=== PATIENT | male | born 1935 | race Caucasian/White ===

== ENCOUNTER → 2017-03-24 | Day surgery (SDC) | payer MEDICARE, BC ==
[2017-03-20 14:24] VITALS: BMI 27.9
[~2017-03-24] MED LIST: IODIXANOL 320 MG/ML 100 ML IV ONE; SODIUM CHLORIDE 0.9% 250 ML IV ONE
[2017-03-24 12:02] VITALS: BP 134/74; PULSE 70; RESP 18; TEMP 98
--- NOTE | 2017-03-24 12:42 | P.PCN ---
Preoperative Diagnosis: Left upper extremity venogram and cine fluoroscopy of the leads Patient is a dual-chamber ICD which is approaching ADÁN. 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 50 mL of dye injected in the left upper extremity vein. Cephalic axillary subclavian and innominate veins were patent Plan Proceed with upgrade to a biventricular ICD at the time of ICD generator change since patient's RV pacing percentage is now greater than 70% and he is underlying cardiac myopathy and class II CHF Postoperative Diagnosis: Procedure(s) Performed: Implants: Anesthesia: none Disposition: same day Indications for Procedure: Operative Findings: Description of Procedure:
== END ==
LOC: CATHEP 11:34
PROVIDERS: ATTEND Internal Medicine Clinical Cardiac Electrophysiology
DX: I47.2 Ventricular tachycardia (principal); Z45.02 Encounter for adjustment and management of automatic implantable cardiac defibrillator; I45.10 Unspecified right bundle-branch block; I42.9 Cardiomyopathy, unspecified; I50.9 Heart failure, unspecified
CPT/HCPCS: 36005; 75820; Q9967

== ENCOUNTER → 2017-04-16 | Day surgery (SDC) | payer MEDICARE, BC ==
[2017-04-15 08:44] VITALS: BMI 33.9
[~2017-04-16] MED LIST changes: -IODIXANOL 320 MG/ML 100 ML IV ONE; +SODIUM CHLORIDE 0.9% 1,000 ML IV SCH; -SODIUM CHLORIDE 0.9% 250 ML IV ONE; +ceFAZolin 1,000 MG in SODIUM CHLORIDE 0.9% IRRIGATIO 250 ML IRRIGATION ONE; +ceFAZolin 2 GM in SODIUM CHLORIDE 0.9% 100 ML IVPB ONE
--- NOTE | 2017-04-16 11:46 | P.PCN ---
Preoperative Diagnosis: Patient has a history of exercise-induced ventricular fibrillation and is status post dual-chamber ICD. Device is at ADÁN Today he was brought in for upgrade to a biventricular ICD with implantation of a new LV lead and generator change. Indication cardiomyopathy Sustained VT/VF with exercise Wide QRS right bundle branch block pattern AV node disease with high percentage of RV pacing of with DDD pacing Patient programmed AAI - DDD, but once again high percentage of RV pacing of 70 % High percentage RV pacing could not be avoided with any pacing mode programming Known cardiac myopathy ejection fraction 40% in the past Based upon appropriate use criteria for ICD/biventricular device since, ACC/HRS guidelines, anticipated RV pacing greater than 40% qualifies for upgrade to a biventricular device. Appropriate use criteria 2013, ACC/HRS document, table 6.4, indication 227, M5 Today procedure was canceled because he had a skin reaction to Hibiclens soap with a rash all over his anterior chest wall including over the generator Plan Avoid Hibiclens soap Reschedule after confirming that his skin has healed He was seen in the office in about a week's time in the device clinic Postoperative Diagnosis: Procedure(s) Performed: Implants: Indications for Procedure: Operative Findings: Description of Procedure:
== END ==
LOC: CATHEP 10:52
PROVIDERS: ATTEND Internal Medicine Clinical Cardiac Electrophysiology
DX: I49.01 Ventricular fibrillation (principal); Z45.010 Encounter for checking and testing of cardiac pacemaker pulse generator [battery]; Z53.9 Procedure and treatment not carried out, unspecified reason; R21 Rash and other nonspecific skin eruption

== ENCOUNTER 2017-05-10 16:20 | Emergency (ER) | payer MEDICARE, BC ==
[2017-05-10 17:06] VITALS: BP 167/88; PULSE 65; RESP 18; TEMP 97.9
[2017-05-10] MEDS ORDERED: DIPH,PERTUS(ACELL)TETVAC-LF 0.5 ML VIAL IM ONE (17:18)
--- NOTE | 2017-05-10 17:25 | ED ---
General Adult HPI - General Chief complaint: Wound/Laceration Stated complaint: Chest Pressure-Fall Time Seen by Provider: 05/10/17 17:13 Source: patient, RN notes reviewed Mode of arrival: ambulatory Limitations: no limitations - History of Present Illness Initial comments: 81-year-old male presents to the emergency department with chief complaint of fall. Patient states he was trying to get down a palate and he lost his balance. Patient states that he fell backwards. Patient states he did cut his left arm he does not recall his last tetanus he has no pain to the arm. Patient states that he also was having some tenderness to the left breast. Patient states the palate came down and it hit his left breast and now some bruising to that area so he was concerned. Patient states is no shortness of breath there is no bleeding from the area. Patient states if you touch that specific areas pain. No pain throughout the rest the chest. He has a pacemaker at this time but it is much higher than that. Family was concerned due to the bruising to the chest so they thought that they should be seen as well as due to the left arm abrasion.Patient denies any recent fever, chills, shortness of breath, back pain, abdominal pain, nausea vomiting, numbness or tingling, dysuria or hematuria, constipation or diarrhea, headaches or visual changes, or any other current symptoms. - Related Data Home Medications Medication Instructions Recorded Confirmed Advil Arthritis 400 mg PO BID 07/09/16 04/15/17 Aspirin [Adult Low Dose Aspirin EC] 81 mg PO DAILY 07/09/16 04/16/17 Losartan [Cozaar] 50 mg PO DAILY 07/09/16 04/16/17 Rosuvastatin [Crestor] 10 mg PO HS 07/09/16 04/16/17 Sotalol [Betapace] 120 mg PO BID 07/09/16 04/16/17 amLODIPine [Norvasc] 2.5 mg PO HS 07/09/16 04/16/17 Cholecalciferol [Vitamin D3] 400 unit PO HS 04/15/17 04/16/17 Calcium 1000mg 1 tab PO HS 05/10/17 05/10/17 Allergies Allergy/AdvReac Type Severity Reaction Status Date / Time chlorhexidine Allergy Itching Verified 05/10/17 17:26 [From Hibiclens] iodine Allergy red face Verified 05/10/17 17:26 morphine Allergy Itching/fev Verified 05/10/17 17:26 er Review of Systems ROS Statement: Those systems with pertinent positive or pertinent negative responses have been documented in the HPI. ROS Other: All systems not noted in ROS Statement are negative. Past Medical History Past Medical History: Cancer, Osteoarthritis (OA), Prostate Disorder Additional Past Medical History / Comment(s): SEE DR SOLIS'S H&P, HX PROSTATE CA, hx fx back, some loss of short term memory, passed out 03/21/17 History of Any Multi-Drug Resistant Organisms: None Reported Past Surgical History: AICD, Joint Replacement, Prostate Surgery Additional Past Surgical History / Comment(s): hip replacement x 2 (daughter not sure which), valarie eye surgery, Past Anesthesia/Blood Transfusion Reactions: Previous Problems w/ Anesthesia Additional Past Anesthesia/Blood Transfusion Reaction / Comment(s): skin turned red and got itchy Type of Cardiac Device: AICD Device Placement Date:: 2009 Past Psychological History: No Psychological Hx Reported Smoking Status: Former smoker - Past Family History Father Family Medical History: Cancer General Exam - General Exam Comments Initial Comments: General: The patient is awake and alert, in no distress, and does not appear acutely ill. Eye: Pupils are equal, round and reactive to light, extra-ocular movements are intact; there is normal conjunctiva bilaterally. No signs of icterus. Ears, nose, mouth and throat: There are moist mucous membranes and no oral lesions. Neck: The neck is supple, there is no tenderness. Cardiovascular: There is a regular rate and rhythm. No murmur, rub or gallop is appreciated. Patient does have some bruising under the left nipple. It is tender to touch. Pacemaker does appear to be in place is no tenderness around it and no deformity or bruising noted around the area. Respiratory: Lungs are clear to auscultation, respirations are non-labored, breath sounds are equal. No wheezes, stridor, rales, or rhonchi. Gastrointestinal: Soft, non-distended, non-tender abdomen without masses or organomegaly noted. There is no rebound or guarding present. No CVA tenderness. Bowel sounds are unremarkable. Back: There is no tenderness to palpation in the midline. There is no obvious deformity. No rashes noted. Musculoskeletal: Skin tear noted to the left forearm Normal ROM, no tenderness , There is no pedal edema. There is no calf tenderness or swelling. Sensation intact. Pulses equal bilaterally 2+. Neurological: CN II-XII intact, There are no obvious motor or sensory deficits. Coordination appears grossly intact. Speech is normal. Skin: Skin is warm and dry and no rashes or lesions are noted. Psychiatric: Cooperative, appropriate mood & affect, normal judgment. Limitations: no limitations Course Vital Signs 05/10/17 17:03 Temperature 97.9 F Pulse Rate 65 Respiratory 18 Rate Blood Pressure 167/88 O2 Sat by Pulse 97 Oximetry Medical Decision Making - Medical Decision Making 80-year-old male presents to the emergency room chief complaint of left-sided chest wall bruising from a fall as well as a skin tear to the left forearm. This time patient underwent cleansing of the wound. At this time chest x-ray is negative. We discussed applying ice the area. We discussed close follow-up return parameters all questions. Patient's family stated they understood this plan. They will be discharged home. - Radiology Data Radiology results: report reviewed, image reviewed Disposition Clinical Impression: Chest wall contusion, Abrasion of left forearm Disposition: HOME SELF-CARE Condition: Stable Instructions: Abrasion (ED), Contusion in Adults (ED) Additional Instructions: Please use medication as discussed. Please follow up with family doctor if symptoms have not improved over the next two days. Please return to the emergency room if your symptoms increase or worsen or for any other concerns. Referrals: Eda Weiner MD [Primary Care Provider] - 1-2 days Time of Disposition: 17:50
--- NOTE | 2017-05-10 17:42 | XR ---
EXAMINATION TYPE: XR ribs LT w pa chest xray DATE OF EXAM: 05/10/2017 COMPARISON: NONE HISTORY: Fall TECHNIQUE: 5 views FINDINGS: There is no heart failure nor confluent pneumonic infiltrate. There is coarsening of inters titial markings. There is no sign of pleural effusion or pneumothorax. Thoracic aorta is atheromatous . There is left axillary pacemaker with the lead tips in the right ventricle. There are calcified gra nulomata in the left lower lobe. I see no rib fracture. IMPRESSION: Atheromatous aorta. No active cardiopulmonary disease. No rib fracture seen. Mild pulmona ry fibrotic changes.
== END 2017-05-10 18:02 | disposition home or self-care (01) ==
LOC: EC 16:20
DX: S20.212A Contusion of left front wall of thorax, initial encounter (principal); S50.812A Abrasion of left forearm, initial encounter; M19.90 Unspecified osteoarthritis, unspecified site; Z87.891 Personal history of nicotine dependence; Z23 Encounter for immunization; Z79.1 Long term (current) use of non-steroidal anti-inflammatories (NSAID); Z79.82 Long term (current) use of aspirin; Z79.899 Other long term (current) drug therapy; Z85.46 Personal history of malignant neoplasm of prostate; Z88.5 Allergy status to narcotic agent; Z88.8 Allergy status to other drugs, medicaments and biological substances; Z91.048 Other nonmedicinal substance allergy status; W17.89XA Other fall from one level to another, initial encounter; Y93.89 Activity, other specified
CPT/HCPCS: 90471; 90715; 99283

== ENCOUNTER → 2017-11-27 | Outpatient (CLI) | payer MEDICARE ==
[2017-11-27 08:14] LABS: HCT 46.2 % (39.0-53.0); HGB 15.1 gm/dL (13.0-17.5); MCH 32.7 pg (25.0-35.0); MCHC 32.8 g/dL (31.0-37.0); MCV 99.9 fL (80.0-100.0); Mean Platelet Volume 7.1; Platelet Count 224 k/uL (150-450); RBC 4.62 m/uL (4.30-5.90); RDW 12.9 % (11.5-15.5); WBC 5.6 k/uL (3.8-10.6)
[2017-11-27 08:56] LABS: Anion Gap 9 mmol/L; Blood Urea Nitrogen 24 mg/dL (9-20); Calcium 9.3 mg/dL (8.4-10.2); Carbon Dioxide 29 mmol/L (22-30); Chloride 104 mmol/L (98-107); Glucose 96 mg/dL (74-99); Potassium 4.6 mmol/L (3.5-5.1); Sodium 142 mmol/L (137-145)
== END | disposition home or self-care (01) ==
LOC: LABWHC1 07:46
PROVIDERS: ATTEND Internal Medicine Clinical Cardiac Electrophysiology
DX: I25.10 Atherosclerotic heart disease of native coronary artery without angina pectoris (principal); I47.2 Ventricular tachycardia
CPT/HCPCS: 36415; 80048; 85027

== ENCOUNTER 2017-12-03 10:41 | Day surgery (SDC) | payer BC, MEDICARE ==
[~2017-12-03 10:41] MED LIST changes: -ceFAZolin 2 GM in SODIUM CHLORIDE 0.9% 100 ML IVPB ONE; +ceFAZolin IN SWFI 2 GM/20 ML SYRINGE IVP ONE; +diphenhydrAMINE 50 MG/ML 1 ML VIAL IVP PRN; +methylPREDNISolone SOD SUCCI 40 MG/ML 1 ML VIAL IV ONE
[2017-12-03] MEDS ORDERED: methylPREDNISolone SOD SUCCI 125 MG/2 ML VIAL IVP ONE (11:37)
[2017-12-03] MEDS ORDERED: HYDROcodone/APAP 5-325MG 1 EACH TAB PO PRN (11:37)
[2017-12-03] MEDS ORDERED: ACETAMINOPHEN TAB 325 MG TAB PO PRN (11:37)
[2017-12-03] MEDS ORDERED: ACETAMINOPHEN IV (For NPO) 1,000 MG in EMPTY BAG 1 BAG IVPB ONE (11:37)
[2017-12-03] MEDS ORDERED: SODIUM CHLORIDE 0.9% 1,000 ML IV ONE (11:39)
[2017-12-03] MEDS ORDERED: MIDAZOLAM 2 MG/2 ML VIAL ONE (11:43)
[2017-12-03] MEDS ORDERED: PHENYLEPHRINE-0.9% NACL SYG 1 MG/10 ML SYRINGE ONE (11:43)
[2017-12-03] MEDS ORDERED: fentaNYL (PF) 50 MCG/ML 2 ML AMP ONE (11:43)
[2017-12-03] MEDS ORDERED: PROPOFOL 10 MG/ML 20 ML VIAL IV ONE (11:43)
[2017-12-03] MEDS ORDERED: ceFAZolin IN SWFI 2 GM/20 ML SYRINGE IVP SCH (12:00)
[2017-12-03] MEDS ORDERED: LIDOCAINE 1% INJ 10MG/ML (20 ML MDV) SQ ONE ×4 (12:21→12:53)
[2017-12-03] MEDS ORDERED: IODIXANOL 320 MG/ML 100 ML IV ONE (13:01)
--- NOTE | 2017-12-03 15:06 | CE ---
CARDIAC ELECTROPHYSIOLOGY REPORT An 81-year-old male patient who underwent an upgrade to a biventricular ICD from a dual- chamber ICD since he had high RV pacing percentage and underlying bradycardia with abnormal AV node function. He has a history of spontaneous exercise induced VF as well as later sustained VT and that was treated with appropriate ICD therapy. PROCEDURE: The patient is brought to the EP lab in a fasting state. Written informed consent was obtained prior to the procedure. The left shoulder area was prepped and draped as per protocol. 1% lidocaine was used for local anesthesia. A 4 cm incision was made parallel to the deltopectoral groove exactly over the previous incision site and carried down to the level of the generator. The generator was explanted. A partial capsulectomy was performed. The vein access was performed. The coronary sinus lead was placed in the lateral vein. This was tested and secured to the underlying pectoralis muscle. A new generator was implanted. The old generator was a [employer] model number [id number], serial number [id number]. The new generator implanted was a [employer] model #XZ3331-64Q, serial #[id number]. The new LV lead was positioned in the lateral coronary vein, a [employer] model 1458Q, 75 cm in length and serial number [id number]. The chronic atrial lead was a Medtronic model #5076, serial number [id number] and the ICD lead was a Medtronic 6947, serial number [id number]. The P waves were 3.3 mV, R-waves 2 mV, pacing impedance in the atrium 430 ohms, pacing impedance in the right ventricle 610 ohms. Pacing impedance in the LV lead 460 ohms. The atrial pacing threshold 0.75 V at 0.5 milliseconds, RV pacing threshold 1.25 V at 0.5 milliseconds, and LV pacing threshold 1.2 V at 0.5 milliseconds. (M3-RV coil) The leads and the leads and generator were then placed in subfascial pocket. The wound was closed in 3 layers and dressed per protocol. DFT TESTING UNDER ANESTHESIA: A shock and T-wave protocol was used to induce ventricular fibrillation. This was adequately and appropriately detected at least sensitivity without any drop outs and successfully internally defibrillated with a 10 joule shock. The charge time was the charge time was 1.5 seconds. Shock impedance 74 ohms. No post shock noise. The device was programmed to DDDR 50-130 ppm with short AV delay. LV pacing M3-RV coil Madit-IT RIT was programmed. Sensitivity at normal settings. RESULTS: Successful upgrade of a dual-chamber ICD to a biventricular ICD with explantation of a chronic ICD, dual-chamber ICD lead, implantation of new biventricular ICD generator and a new LV lead. DFT testing was performed. MMODL / IJN: [id number] /
[2017-12-03] MEDS: ceFAZolin IN SWFI 2 GM/20 ML SYRINGE IVP SCH (18:08)
[2017-12-03 18:27] VITALS: BMI 27.2
[2017-12-03] MEDS ORDERED: amLODIPine 2.5 MG TAB PO SCH (21:00)
[2017-12-03] MEDS ORDERED: ATORVASTATIN 20 MG TAB PO SCH (21:00)
[2017-12-03] MEDS: SOTALOL 120 MG TAB PO SCH (21:20)
[2017-12-04] MEDS: ceFAZolin IN SWFI 2 GM/20 ML SYRINGE IVP SCH ×3 (00:18→11:45)
--- NOTE | 2017-12-04 07:48 | XR ---
EXAMINATION TYPE: XR chest 2V DATE OF EXAM: 12/04/2017 COMPARISON: Prior chest x-ray 05/10/2017 HISTORY: Lead placement check TECHNIQUE: Frontal and lateral views of the chest are obtained. FINDINGS: Interval placement of a coronary sinus lead. No pneumothorax or pleural effusion. Exam is otherwise stable. IMPRESSION: Interval lead placement without complication.
[2017-12-04] MEDS: SOTALOL 120 MG TAB PO SCH (08:19)
--- NOTE | 2017-12-04 08:32 | P.DS ---
Providers Attending physician: Everardo Meza Primary care physician: Eda [facility] Course: Patient is doing well from a cardiac standpoint. The ICD site is sore but there is no swelling no hematoma and minimal bruising and soakage. He is resting comfortably in bed. He did ambulate to the bathroom. No chest discomfort no palpitations On examination he is afebrile 97.4F pulse is regular rhythm on telemetry is paced. Pulse rates in the 50s and 60s normal respirations blood pressure 127 of 76. His mercury Heart sounds are normal no rub no gallop Sounds are clear no rhonchi no crackles no adventitious sounds Abdomen soft nontender Extremities warm no edema Impression 81-year-old male patient with a history of exercise-induced VF Status post dual-chamber ICD for management of sick sinus syndrome and exercise- induced VF for secondary prevention of sudden cardiac Spontaneous VT requiring ICD therapy in 2009 Device at ADÁN Sick Sinus Syndrome Abnormal AV node function High RV pacing percentage of between 70 have an 80% with heart failure symptoms , EF 50-55% Hypertension Nonobstructive CAD Dyslipidemia Successful LV lead placement an upgrade to a biventricular ICD Plan Chest x-ray is within normal limits He will receive IV antibiotics today and will be discharged home after device interrogation and will follow up with us in about 5 days. I have added Toprol- XL 25 mg by mouth daily which she will take along with sotalol 120 mg twice daily Patient Condition at Discharge: Stable Plan - Discharge Summary Discharge Rx Participant: Yes New Discharge Prescriptions: New RX: Metoprolol Succinate [Toprol XL] 25 mg PO DAILY #90 tab No Action RX: Sotalol [Betapace] 120 mg PO BID Losartan [Cozaar] 50 mg PO DAILY RX: Aspirin [Adult Low Dose Aspirin EC] 81 mg PO DAILY amLODIPine [Norvasc] 2.5 mg PO HS Rosuvastatin [Crestor] 10 mg PO HS Advil Arthritis 400 mg PO BID Calcium 1000mg 1 tab PO HS Donepezil [Aricept] 10 mg PO HS Discharge Medication List Advil Arthritis 400 mg PO BID 07/09/16 [History] Losartan [Cozaar] 50 mg PO DAILY 07/09/16 [History] RX: Aspirin [Adult Low Dose Aspirin EC] 81 mg PO DAILY 07/09/16 [History] RX: Sotalol [Betapace] 120 mg PO BID 07/09/16 [History] Rosuvastatin [Crestor] 10 mg PO HS 07/09/16 [History] amLODIPine [Norvasc] 2.5 mg PO HS 07/09/16 [History] Calcium 1000mg 1 tab PO HS 05/10/17 [History] Donepezil [Aricept] 10 mg PO HS 12/01/17 [History] RX: Metoprolol Succinate [Toprol XL] 25 mg PO DAILY #90 tab 12/03/17 [Rx] Activity/Diet/Wound Care/Special Instructions: PATIENT EDUCATION MATERIAL Instructions following a heart rhythm device implant. 1. Keep dressing DRY for 5 DAYS. You may cover the area with Saran or Cling Wrap, prior to a shower. 2. The dressing will be removed in the Device Clinic @ [facility]. Absorbable sutures were used to close the wound. 3. Avoid raising the [left] arm above the shoulder level. [4 week restriction] 4. Avoid arm movements, like backscratching, rubbing the head, or pulling on a cord. (4 weeks restriction) 5. Gentle range of motion movements of the shoulder, closest to the incision should be performed to avoid a frozen shoulder. (Pendulum exercises of the shoulder) 6. The opposite arm may be used freely. 7. Avoid driving for 7 days. 8. Avoid activities such as golfing, swimming, weed whacking, lifting more than 10 pounds weight, bowling, gymnastics and weight training/lifting. (6 weeks restriction) 9. Activities such as wood chopping with an axe, pull-ups in the gymnasium, power lifting, arc-welding, being close to home induction cooktops will always be a problem. 10. Arm sling is a mere reminder not to raise the arm above the head. However you do not need to keep the arm completely immobilized. Your free to move the arm and use it and for normal activities. In case of any problems, please call [facility], [place], @ [phone], Attention: Device Clinic New medication Toprol-XL 25 mg by mouth daily in addition to sotalol Continue all other medications unchanged Device clinic follow-up in [address] Smith in 4 months Discharge Disposition: HOME SELF-CARE
[2017-12-04 08:55] VITALS: RESP 18
[2017-12-04] MEDS ORDERED: ASPIRIN 81 MG PO SCH (09:00)
[2017-12-04] MEDS ORDERED: METOPROLOL SUCCINATE (ER) 25 MG TAB.ER.24H PO SCH (09:00)
[2017-12-04] MEDS ORDERED: LOSARTAN 50 MG TAB PO SCH (09:00)
[2017-12-04 12:15] VITALS: BP 152/75; PULSE 69; TEMP 97.8
== END 2017-12-04 13:05 | disposition home or self-care (01) ==
LOC: CATHEP 10:41 → 3OBS 13:50 → CATHEP 12-04 13:05
PROVIDERS: ATTEND Internal Medicine Clinical Cardiac Electrophysiology
DX: Z45.02 Encounter for adjustment and management of automatic implantable cardiac defibrillator (principal); I49.01 Ventricular fibrillation; I25.10 Atherosclerotic heart disease of native coronary artery without angina pectoris; I11.0 Hypertensive heart disease with heart failure; I50.9 Heart failure, unspecified; F03.90 Unspecified dementia, unspecified severity, without behavioral disturbance, psychotic disturbance, mood disturbance, and anxiety; E78.5 Hyperlipidemia, unspecified; Z79.82 Long term (current) use of aspirin; Z88.3 Allergy status to other anti-infective agents; Z88.5 Allergy status to narcotic agent; Z91.041 Radiographic dye allergy status; Z87.891 Personal history of nicotine dependence; Z79.899 Other long term (current) drug therapy
CPT/HCPCS: 93641; 33225; 33263; 71046; C1769 ×3; C1892; C1730; C1900; C1882; J2250; J1200; J2930; Q9967; J0690 ×3; J2001; J3010; J0131; J2370; J2704

== ENCOUNTER → 2018-03-08 | Outpatient (CLI) | payer MEDICARE ==
[2018-03-08 08:26] LABS: HCT 41.9 % (39.0-53.0); HGB 13.8 gm/dL (13.0-17.5); MCH 31.8 pg (25.0-35.0); MCHC 32.9 g/dL (31.0-37.0); MCV 96.6 fL (80.0-100.0); Mean Platelet Volume 7.3; Platelet Count 201 k/uL (150-450); RBC 4.34 m/uL (4.30-5.90); RDW 13.6 % (11.5-15.5); WBC 5.6 k/uL (3.8-10.6)
[2018-03-08 08:38] LABS: Anion Gap 11 mmol/L; Blood Urea Nitrogen 18 mg/dL (9-20); Calcium 8.7 mg/dL (8.4-10.2); Carbon Dioxide 24 mmol/L (22-30); Chloride 107 mmol/L (98-107); Glucose 96 mg/dL (74-99); Potassium 4.6 mmol/L (3.5-5.1); Sodium 142 mmol/L (137-145)
== END ==
LOC: LABWHC1 07:58
PROVIDERS: ATTEND Internal Medicine Clinical Cardiac Electrophysiology
DX: I47.2 Ventricular tachycardia (principal); I25.10 Atherosclerotic heart disease of native coronary artery without angina pectoris
CPT/HCPCS: 36415; 80048; 85027

== ENCOUNTER → 2018-03-22 | Day surgery (SDC) | payer MEDICARE ==
[~2018-03-22] MED LIST changes: +IOPAMIDOL-370 50ML BTL INJ ONE; +MIDAZOLAM 2 MG/2 ML VIAL ONE; +PROPOFOL 10 MG/ML 20 ML VIAL IV ONE; -ceFAZolin 1,000 MG in SODIUM CHLORIDE 0.9% IRRIGATIO 250 ML IRRIGATION ONE; -ceFAZolin IN SWFI 2 GM/20 ML SYRINGE IVP ONE; -diphenhydrAMINE 50 MG/ML 1 ML VIAL IVP PRN; +diphenhydrAMINE 50 MG/ML 1 ML VIAL ONE; +fentaNYL (PF) 50 MCG/ML 2 ML AMP ONE; -methylPREDNISolone SOD SUCCI 40 MG/ML 1 ML VIAL IV ONE
[2018-03-22 06:43] VITALS: RESP 18
--- NOTE | 2018-03-22 08:33 | P.PCN ---
Preoperative Diagnosis: Procedures Left upper extremity venogram attempted Cinefluoroscopy of the leads Defibrillation levels tested for sensing of VF Indication for the procedure Diminutive R waves on ICD lead sensing Procedures Left upper extremity venogram was attempted. However there was dye extravasation left upper extremity and it was difficult to get another IV in the left upper extremity In the future I would get ultrasound-guided IV access in the left upper extremity for venogram Cinefluoroscopy of the leads was performed. Right atrial RV and LV leads were in stable position and no obvious fractures or breaks noted ICD testing under anesthesia performed. VF induced Charge times appropriate Shocking impedance 68 ohms Dropouts noted We tested him at the sensitivity of 1.0 volts, 0.5 mV and 0.3 mV. There was no significant difference in the number of dropouts noted. Greater than 6 dropouts noted on each occasion but he was successfully detected in defibrillated ICD was then the programmed Sensitivity of 0.[address] device there is no option for changing the sensing vector VT zone 176 beats a minute, VT to zone at 200 bpm and VF at 230 beats a minute Number of Detection beats: 50, 40, 24 in each, respectively Timeout of 3 minutes in the VF zone Plan DFT testing in about 6 months again to assure adequate sensing and device function. Options include implantation of a new ICD lead, RV sensing lead I would also consider changing the device to a [employer] device so that we have an option for RV tip coil sensing DFT testing in September 2018 once again VENOGRAM ALSO At that time, left upper extremity IV access will be obtained, ULTRASOUND GUIDED Anesthesia: MAC Condition: stable Disposition: same day
[2018-03-22 09:12] VITALS: BP 105/62; PULSE 56; TEMP 98
== END ==
LOC: CATHEP 06:10
PROVIDERS: ATTEND Internal Medicine Clinical Cardiac Electrophysiology
DX: I42.9 Cardiomyopathy, unspecified (principal); T82.110A Breakdown (mechanical) of cardiac electrode, initial encounter; I49.5 Sick sinus syndrome; I25.10 Atherosclerotic heart disease of native coronary artery without angina pectoris; I10 Essential (primary) hypertension; E78.5 Hyperlipidemia, unspecified; M19.90 Unspecified osteoarthritis, unspecified site; K21.9 Gastro-esophageal reflux disease without esophagitis; Z79.1 Long term (current) use of non-steroidal anti-inflammatories (NSAID); Z79.899 Other long term (current) drug therapy; Z88.3 Allergy status to other anti-infective agents; Z88.5 Allergy status to narcotic agent; Z91.048 Other nonmedicinal substance allergy status
CPT/HCPCS: 93642; 76000; J2250; J1200; J3010; J2704; Q9967

== ENCOUNTER → 2018-09-23 | Day surgery (SDC) | payer MEDICARE ==
[2018-09-21 10:19] VITALS: BMI 31.6
[~2018-09-23] MED LIST changes: -IOPAMIDOL-370 50ML BTL INJ ONE; +LACTATED RINGERS 1,000 ML IV SCH; +LIDOCAINE 1% INJ 10MG/ML (20 ML MDV) ONE; -MIDAZOLAM 2 MG/2 ML VIAL ONE; +SODIUM CHLORIDE 0.9% 500 ML 500 ML IV ONE; -fentaNYL (PF) 50 MCG/ML 2 ML AMP ONE
[2018-09-23 07:24] VITALS: RESP 16; TEMP 97.5
[2018-09-23 08:04] LABS: Basophils % (A) 0 %; Eosinophils # (A) 0.5 k/uL (0-0.7); Eosinophils % (A) 8 %; HCT 41.5 % (39.0-53.0); HGB 13.8 gm/dL (13.0-17.5); Lymphocytes # (A) 1.4 k/uL (1.0-4.8); Lymphocytes % (A) 24 %; MCH 32.2 pg (25.0-35.0); MCHC 33.2 g/dL (31.0-37.0); MCV 96.8 fL (80.0-100.0); Mean Platelet Volume 6.9; Monocytes # (A) 0.4 k/uL (0-1.0); Monocytes % (A) 7 %; Neutrophils # (A) 3.4 k/uL (1.3-7.7); Neutrophils % (A) 57 %; Platelet Count 209 k/uL (150-450); RBC 4.29 m/uL (4.30-5.90); RDW 12.9 % (11.5-15.5); WBC 5.9 k/uL (3.8-10.6)
[2018-09-23 08:17] LABS: Anion Gap 7 mmol/L; Blood Urea Nitrogen 28 mg/dL (9-20); Calcium 8.8 mg/dL (8.4-10.2); Carbon Dioxide 22 mmol/L (22-30); Chloride 110 mmol/L (98-107); Glucose 87 mg/dL (74-99); Potassium 4.5 mmol/L (3.5-5.1); Sodium 139 mmol/L (137-145)
--- NOTE | 2018-09-23 09:08 | PCN ---
PROCEDURE NOTE Mr. Gilman is a gentleman who has a history of exercise-induced ventricular tachycardia with syncope. He has had an ICD implanted in the past. Subsequently this was upgraded to a biventricular ICD because of a very high percentage of RV pacing. 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 Cine fluoroscopy of the leads was performed. He has a biventricular device. His atrial lead is in stable position in the right atrial appendage. He has a dual coil ICD [employer] and he has an LV lead [employer] placed in the lateral vein. His he has a [employer] Proxama MP 3369-40 [employer] D serial #[id number]. The P waves at 2.2 mV, pacing threshold 0.75 V at 0.5 milliseconds, pacing impedance of 410 ohms. R-waves are 1.5 mV, pacing threshold 1.625 V at 0.5 milliseconds. Lead impedance 750 ohms. LV pacing threshold was 1.75 V at 1 millisecond, pacing impedance of 610 ohms (M3-RV coil) and high-voltage impedance of 72 ohms. DC fibber shock was used to induce ventricular fibrillation. This was adequately and appropriately detected at least sensitivity. A long detection interval was programmed. A 10 joule shock failed to successfully defibrillate the patient, but there were no drop outs in the initial detection. In the subsequent re-detection, several drop outs were noted because of polymorphic nature of the arrhythmia, but he was successfully defibrillated to an AV biventricular paced rhythm. No post shock noise. The first charge time was 1.6 seconds. The last charge time was 3.6 seconds. High-voltage impedance 72 ohms. No post shock noise. The device was then reprogrammed. The RV pacing pulse was changed to 0.5 milliseconds and Potter capture was turned on to reduce battery drainage during RV pacing. In the first cardioversion in the VT zone 20 joules. First cardioversion the VT 2 zone 30 joules and the first shock in VF 36 joules. Appropriate antitachycardia pacing, cardioversion and defibrillation. IMPRESSION: Patient has a biventricular ICD. The RV sensing is diminutive between 1.5-2.5 mV. However, there is adequate sensing at this time of the ventricular fibrillation signals induced during ICD testing. RV pacing pulse width was changed and auto capture was turned on. The VT therapies were programmed accordingly. PLAN: Follow up in the Device Clinic in 4 months. Follow up with Dr. Meza in 6 months. No change in medications at this time. MMODL / IJN: [id number] /
[2018-09-23 09:13] VITALS: PULSE 49
[2018-09-23 09:14] VITALS: BP 129/68
== END | disposition home or self-care (01) ==
LOC: CATHEP 07:00
PROVIDERS: ATTEND Internal Medicine Clinical Cardiac Electrophysiology
DX: I47.2 Ventricular tachycardia (principal); T82.198A Other mechanical complication of other cardiac electronic device, initial encounter; I25.10 Atherosclerotic heart disease of native coronary artery without angina pectoris; I10 Essential (primary) hypertension; Z79.82 Long term (current) use of aspirin; Z79.899 Other long term (current) drug therapy; Z88.5 Allergy status to narcotic agent; Z88.8 Allergy status to other drugs, medicaments and biological substances; Z91.048 Other nonmedicinal substance allergy status
CPT/HCPCS: 93642; 76000; 80048; 85025; J1200; J2001; J2704

== ENCOUNTER → 2018-11-26 | Outpatient (CLI) | payer MEDICARE ==
--- NOTE | 2018-11-26 09:53 | CT ---
EXAMINATION TYPE: CT brain w con DATE OF EXAM: 11/26/2018 COMPARISON: None. HISTORY: TIA CT DLP: 945.5 mGycm Automated exposure control for dose reduction was used. CONTRAST: CT scan of the head is performed with IV Contrast, patient injected with 100 mL of Isovue 300. FINDINGS: There is no abnormal enhancing mass or midline shift identified. There is ventricular and sulcal prom inence consistent with diffuse cerebral atrophy. There is low-attenuation in the deep and more promin ent in the periventricular white matter bilaterally fairly confluent in appearance. Dominant left dionne tebral artery is incidentally seen. There are scleral calcification bilateral globes. There is mild t o moderate mucosal thickening in anterior ethmoid sinuses and inferior bilateral frontal sinuses. Vas cular calcification distal internal carotid arteries is present bilaterally. Patchy soft tissue densi ty left external auditory canal is felt to reflect cerumen. Correlate clinically. IMPRESSION: There is mild to moderate diffuse cerebral atrophy and advanced chronic small vessel isch emic change. No enhancing intraparenchymal masses are noted. .
== END | disposition home or self-care (01) ==
LOC: RADCTMAIN 07:57
PROVIDERS: ATTEND Internal Medicine
DX: G31.9 Degenerative disease of nervous system, unspecified (principal); I67.82 Cerebral ischemia
CPT/HCPCS: 82565; 84520; 70460; 36415; Q9967

== ENCOUNTER → 2019-01-04 | Outpatient (CLI) | payer MEDICARE ==
--- NOTE | 2019-01-04 14:56 | XR ---
EXAMINATION TYPE: XR chest 2V DATE OF EXAM: 01/04/2019 COMPARISON: 12/04/2017 HISTORY: Increasing shortness of breath TECHNIQUE: Frontal and lateral views of the chest are obtained. FINDINGS: There is flattening of the diaphragms suggesting underlying COPD. Multilead left-sided car diac device is noted with upper limits of normal size of the cardiomediastinal silhouette. Moderate m ultilevel degenerative changes of the thoracic spine are present. No focal consolidation, pleural eff usion or pneumothorax. Old healed right rib fractures are present. IMPRESSION: No acute cardiopulmonary process. Radiographic sequela of COPD.
== END | disposition home or self-care (01) ==
LOC: RADXRYALE 14:26
PROVIDERS: ATTEND Internal Medicine
DX: J44.9 Chronic obstructive pulmonary disease, unspecified (principal)
CPT/HCPCS: 71046

== ENCOUNTER → 2019-01-06 | Outpatient (CLI) | payer MEDICARE | LOC: LABWHC1 12:45 | PROVIDERS: ATTEND Internal Medicine | DX: R06.02 Shortness of breath (principal) | CPT/HCPCS: 36415; 83880 ==

== ENCOUNTER 2019-11-24 11:59 | Emergency (ER) | payer MEDICARE ==
[2019-11-24 12:08] VITALS: RESP 18
--- NOTE | 2019-11-24 13:04 | US ---
EXAMINATION TYPE: US venous doppler duplex LE RT DATE OF EXAM: 11/24/2019 12:53 PM COMPARISON: NONE CLINICAL HISTORY: pain. Pt states right leg swelling and redness x 3 days SIDE PERFORMED: Right TECHNIQUE: The lower extremity deep venous system is examined utilizing real time linear array sonog dimple with graded compression, doppler sonography and color-flow sonography. VESSELS IMAGED: External Iliac Vein (EIV) Common Femoral Vein Deep Femoral Vein Greater Saphenous Vein * Femoral Vein Popliteal Vein Small Saphenous Vein * Proximal Calf Veins (* superficial vessels) Right Leg: Positive for DVT external iliac vein to proximal popliteal vein. There is noncompression and echogenic thrombus throughout these veins. IMPRESSION: Exam is positive for deep venous thrombosis in the external iliac vein extending into the proximal popliteal vein.
[2019-11-24 13:07] LABS: Basophils % (A) 0 %; Eosinophils # (A) 0.4 k/uL (0-0.7); Eosinophils % (A) 4 %; HCT 40.9 % (39.0-53.0); HGB 13.7 gm/dL (13.0-17.5); Lymphocytes # (A) 1.1 k/uL (1.0-4.8); Lymphocytes % (A) 12 %; MCH 32.1 pg (25.0-35.0); MCHC 33.5 g/dL (31.0-37.0); MCV 95.7 fL (80.0-100.0); Mean Platelet Volume 7.6; Monocytes # (A) 0.6 k/uL (0-1.0); Monocytes % (A) 6 %; Neutrophils # (A) 6.7 k/uL (1.3-7.7); Neutrophils % (A) 74 %; Platelet Count 238 k/uL (150-450); RBC 4.27 m/uL (4.30-5.90); RDW 13.8 % (11.5-15.5)
[2019-11-24 13:12] LABS: ALT 12 U/L (4-49); AST 27 U/L (17-59); African American GFR (CKD) >90 (>60 ml/min/1.73 sqM); Albumin 3.7 g/dL (3.5-5.0); Alkaline Phosphatase 80 U/L (38-126); Anion Gap 6 mmol/L; Blood Urea Nitrogen 20 mg/dL (9-20); Calcium 8.6 mg/dL (8.4-10.2); Carbon Dioxide 28 mmol/L (22-30); Chloride 106 mmol/L (98-107); Glucose 82 mg/dL (74-99); Non-African American GFR(CKD) 83 (>60 ml/min/1.73 sqM); Potassium 4.3 mmol/L (3.5-5.1); Sodium 140 mmol/L (137-145); Total Bilirubin 0.8 mg/dL (0.2-1.3); Total Protein 6.7 g/dL (6.3-8.2)
[2019-11-24] MEDS ORDERED: APIXABAN 5 MG TAB PO STA (13:29)
--- NOTE | 2019-11-24 13:34 | ED ---
Lower Extremity Injury HPI - General Chief Complaint: Extremity Injury, Lower Stated Complaint: Lower leg swelling Time Seen by Provider: 11/24/19 12:17 Source: patient, family, RN notes reviewed Mode of arrival: wheelchair Limitations: no limitations - History of Present Illness Initial Comments: This is an 83-year-old male presents emergency Department with daughter from PCPs office for an ultrasound of his right lower extremity. They're concerned for possible DVT versus cellulitis. Patient has been a recent antibiotics for other infections. Family states that he's had no history of DVT or PE denies any chest pain or shortness of breath he states his leg appears to be swollen, slightly red in color. Patient denies any significant pain no difficulty ambulate in. - Related Data Home Medications Medication Instructions Recorded Confirmed Advil Arthritis 200 mg PO QAM 07/09/16 09/23/18 Aspirin [Adult Low Dose Aspirin EC] 81 mg PO QAM 07/09/16 09/23/18 Losartan [Cozaar] 50 mg PO QAM 07/09/16 09/23/18 Rosuvastatin [Crestor] 10 mg PO HS 07/09/16 09/23/18 Sotalol [Betapace] 120 mg PO BID 07/09/16 09/23/18 amLODIPine [Norvasc] 2.5 mg PO HS 07/09/16 09/23/18 Donepezil [Aricept] 10 mg PO HS 12/01/17 09/23/18 Bicalutamide [Casodex] 50 mg PO QAM 03/11/18 09/23/18 Loratadine 10 mg PO HS 03/11/18 09/23/18 Metoprolol Succinate [Toprol XL] 25 mg PO QAM 03/11/18 09/23/18 Acetaminophen [Tylenol] 500 mg PO HS 09/21/18 09/23/18 Previous Rx's Medication Instructions Recorded Apixaban [Eliquis Starter Pack 0 mg PO DIRECTED 30 Days #1 pack 11/24/19 (for VTE)] Allergies Allergy/AdvReac Type Severity Reaction Status Date / Time chlorhexidine Allergy Itching, Verified 11/24/19 12:02 [From Hibkendrick] Rash iodine Allergy red face Verified 11/24/19 12:02 morphine Allergy Itching/fev Verified 11/24/19 12:02 er Review of Systems ROS Statement: Those systems with pertinent positive or pertinent negative responses have been documented in the HPI. ROS Other: All systems not noted in ROS Statement are negative. 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), hx fx back, some loss of short term memory, passed out 03/21/17,chronic hip and back pain-limp,melanoma-back History of Any Multi-Drug Resistant Organisms: None Reported Past Surgical History: AICD, Joint Replacement, Pacemaker, Prostate Surgery Additional Past Surgical History / Comment(s): unk which hip-hip replacement x 2, valarie cataracts, prostatectomy 1997, venogram Past Anesthesia/Blood Transfusion Reactions: Previous Problems w/ Anesthesia Additional Past Anesthesia/Blood Transfusion Reaction / Comment(s): skin turned red and got itchy Type of Cardiac Device: Permanent Pacemaker, AICD Device Placement Date:: Past Psychological History: No Psychological Hx Reported Smoking Status: Former smoker - Past Family History Father Family Medical History: Cancer General Exam Limitations: no limitations General appearance: alert, in no apparent distress Head exam: Present: atraumatic, normocephalic, normal inspection Neck exam: Present: normal inspection, full ROM. Absent: tenderness, men ingismus, lymphadenopathy Respiratory exam: Present: normal lung sounds bilaterally. Absent: respiratory distress, wheezes, rales, rhonchi, stridor Cardiovascular Exam: Present: regular rate, normal rhythm, normal heart sounds. Absent: systolic murmur, diastolic murmur, rubs, gallop, clicks Extremities exam: Present: other (There is swelling throughout the right leg with mild erythema no increased warmth pedal pulses are palpable) Course Vital Signs 11/24/19 12:03 Temperature 97.7 F Pulse Rate 61 Respiratory 18 Rate Blood Pressure 133/81 Medical Decision Making - Medical Decision Making Patient is positive for DVT on ultrasound, labwork unremarkable. Patient case discussed with his PCP who feels comfortable with close follow-up in office discharge on anticoagulants. I did a long discussion with family and patient regarding risk and benefits they feel comfortable discharged. They understand strict return parameters. - Lab Data Result diagrams: 11/24/19 12:55 11/24/19 12:55 Lab Results 11/24/19 11/24/19 Range/Units 12:55 12:55 WBC 9.0 (3.8-10.6) k/uL RBC 4.27 L (4.30-5.90) m/uL Hgb 13.7 (13.0-17.5) gm/dL Hct 40.9 (39.0-53.0) % MCV 95.7 (80.0-100.0) fL MCH 32.1 (25.0-35.0) pg MCHC 33.5 (31.0-37.0) g/dL RDW 13.8 (11.5-15.5) % Plt Count 238 (150-450) k/uL Neutrophils % 74 % Lymphocytes % 12 % Monocytes % 6 % Eosinophils % 4 % Basophils % 0 % Neutrophils # 6.7 (1.3-7.7) k/uL Lymphocytes # 1.1 (1.0-4.8) k/uL Monocytes # 0.6 (0-1.0) k/uL Eosinophils # 0.4 (0-0.7) k/uL Basophils # 0.0 (0-0.2) k/uL Sodium 140 (137-145) mmol/L Potassium 4.3 (3.5-5.1) mmol/L Chloride 106 (98-107) mmol/L Carbon Dioxide 28 (22-30) mmol/L Anion Gap 6 mmol/L BUN 20 (9-20) mg/dL Creatinine 0.78 (0.66-1.25) mg/dL Est GFR (CKD-EPI)AfAm >90 (>60 ml/min/1.73 sqM) Est GFR (CKD-EPI)NonAf 83 (>60 ml/min/1.73 sqM) Glucose 82 (74-99) mg/dL Calcium 8.6 (8.4-10.2) mg/dL Total Bilirubin 0.8 (0.2-1.3) mg/dL AST 27 (17-59) U/L ALT 12 (4-49) U/L Alkaline Phosphatase 80 (38-126) U/L Total Protein 6.7 (6.3-8.2) g/dL Albumin 3.7 (3.5-5.0) g/dL Disposition Clinical Impression: Right leg DVT Disposition: HOME SELF-CARE Condition: Stable Instructions (If sedation given, give patient instructions): Deep Vein Thrombosis (ED), Deep Vein Thrombosis Prevention (ED) Additional Instructions: Please return to the Emergency Department if symptoms worsen or any other concerns. Prescriptions: Apixaban [Eliquis Starter Pack (for VTE)] 0 mg PO DIRECTED 30 Days #1 pack Is patient prescribed a controlled substance at d/c from ED?: No Referrals: Eda Weiner MD [Primary Care Provider] - 1-2 days Time of Disposition: 13:34
[2019-11-24 13:48] VITALS: BP 140/81; PULSE 58; TEMP 98.1
== END 2019-11-24 13:59 | disposition home or self-care (01) ==
LOC: EC 11:59 → SUPCPDRO 11:59 → EC 13:59
DX: I82.421 Acute embolism and thrombosis of right iliac vein (principal); I82.4Y1 Acute embolism and thrombosis of unspecified deep veins of right proximal lower extremity; I82.431 Acute embolism and thrombosis of right popliteal vein; Z79.82 Long term (current) use of aspirin; Z79.899 Other long term (current) drug therapy; Z88.5 Allergy status to narcotic agent; Z91.048 Other nonmedicinal substance allergy status; Z88.8 Allergy status to other drugs, medicaments and biological substances; Z95.0 Presence of cardiac pacemaker; Z96.641 Presence of right artificial hip joint; Z85.46 Personal history of malignant neoplasm of prostate; Z92.3 Personal history of irradiation; Z85.820 Personal history of malignant melanoma of skin; Z90.79 Acquired absence of other genital organ(s)
CPT/HCPCS: 36415; 80053; 85025; 99284

== ENCOUNTER 2019-11-25 18:50 | Emergency (ER) | payer MEDICARE ==
[2019-11-25] MEDS ORDERED: ONDANSETRON ODT 4 MG TAB PO STA (19:28)
[2019-11-25] MEDS ORDERED: SODIUM CHLORIDE 0.9% 1,000 ML IV STA (19:28)
--- NOTE | 2019-11-25 19:47 | ED ---
General Adult HPI - General Source: EMS, RN notes reviewed, old records reviewed Mode of arrival: EMS Limitations: altered mental status, physical limitation <Lisbeth Cartagena - Last Filed: 11/25/19 21:34> <Liana Goldberg - Last Filed: 11/25/19 23:26> - General Chief complaint: Nausea/Vomiting/Diarrhea Stated complaint: Nausea, VOmiting Time Seen by Provider: 11/25/19 19:14 - History of Present Illness Initial comments: Patient 83-year-old male presents emergency department today with 1 episode of vomiting and retching episode today. Was recently started on a another blood thinner for extensive DVT in the right lower extremity. Was evaluated yesterday for this. Patient states that he has some mild abdominal pain. Patient reports that he did not have a bowel movement yet today. Patient has had the episode of vomiting and family noted one drop of blood. They were concerned the Patient being on blood thinners that he should be evaluated. They deny coffee ground emesis. (Lisbeth Cartagena) - Related Data Home Medications Medication Instructions Recorded Confirmed Advil Arthritis 200 mg PO QAM 07/09/16 09/23/18 Losartan [Cozaar] 50 mg PO QAM 07/09/16 11/25/19 Rosuvastatin [Crestor] 10 mg PO HS 07/09/16 09/23/18 Sotalol [Betapace] 120 mg PO BID 07/09/16 09/23/18 Donepezil [Aricept] 10 mg PO HS 12/01/17 09/23/18 Metoprolol Succinate [Toprol XL] 25 mg PO QAM 03/11/18 09/23/18 Acetaminophen [Tylenol] 500 mg PO HS 09/21/18 09/23/18 Apixaban [Eliquis Starter Pack 10 mg PO BID 11/25/19 (for VTE)] Citalopram Hydrobromide [CeleXA] 20 mg PO DAILY 11/25/19 11/25/19 Clopidogrel [Plavix] 75 mg PO DAILY 11/25/19 11/25/19 Allergies Allergy/AdvReac Type Severity Reaction Status Date / Time chlorhexidine Allergy Itching, Verified 11/24/19 12:02 [From Hibiclens] Rash iodine Allergy red face Verified 11/24/19 12:02 morphine Allergy Itching/fev Verified 11/24/19 12:02 er Review of Systems ROS Other: All systems not noted in ROS Statement are negative. <Lisbeth Cartagena - Last Filed: 11/25/19 21:34> ROS Other: All systems not noted in ROS Statement are negative. <Liana Goldberg - Last Filed: 11/25/19 23:26> ROS Statement: Those systems with pertinent positive or pertinent negative responses have been documented in the HPI. 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), hx fx back, some loss of short term memory, passed out 03/21/17,chronic hip and back pain-limp,melanoma-back History of Any Multi-Drug Resistant Organisms: None Reported Past Surgical History: AICD, Joint Replacement, Pacemaker, Prostate Surgery Additional Past Surgical History / Comment(s): unk which hip-hip replacement x 2, valarie cataracts, prostatectomy 1997, venogram Past Anesthesia/Blood Transfusion Reactions: Previous Problems w/ Anesthesia Additional Past Anesthesia/Blood Transfusion Reaction / Comment(s): skin turned red and got itchy Type of Cardiac Device: Permanent Pacemaker, AICD Device Placement Date:: Past Psychological History: No Psychological Hx Reported Smoking Status: Former smoker Past Alcohol Use History: None Reported Past Drug Use History: None Reported - Past Family History Father Family Medical History: Cancer <Lisbeth Cartagena - Last Filed: 11/25/19 21:34> General Exam Limitations: altered mental status, physical limitation General appearance: alert, in no apparent distress Head exam: Present: atraumatic, normocephalic, normal inspection Eye exam: Present: normal appearance, PERRL, EOMI. Absent: scleral icterus, conjunctival injection, periorbital swelling ENT exam: Present: normal exam, mucous membranes moist Neck exam: Present: normal inspection. Absent: tenderness, meningismus, lymphadenopathy Respiratory exam: Present: normal lung sounds bilaterally. Absent: respiratory distress, wheezes, rales, rhonchi, stridor Cardiovascular Exam: Present: regular rate, normal rhythm, normal heart sounds. Absent: systolic murmur, diastolic murmur, rubs, gallop, clicks GI/Abdominal exam: Present: soft, normal bowel sounds. Absent: distended, tenderness, guarding, rebound, rigid Extremities exam: Present: normal inspection, full ROM, normal capillary refill. Absent: tenderness, pedal edema, joint swelling, calf tenderness Back exam: Present: normal inspection Neurological exam: Present: alert, oriented X3, CN II-XII intact Psychiatric exam: Present: normal affect, normal mood Skin exam: Present: warm, dry, intact, normal color. Absent: rash <Lisbeth Cartagena - Last Filed: 11/25/19 21:34> - General Exam Comments Initial Comments: 83-year-old male. (Lisbeth Cartagena) Course Vital Signs 11/25/19 18:58 Temperature 97.6 F Pulse Rate 68 Respiratory 17 Rate Blood Pressure 144/80 O2 Sat by Pulse 98 Oximetry Medical Decision Making - Lab Data Result diagrams: 11/25/19 20:28 11/25/19 20:28 - Radiology Data Radiology results: report reviewed <Lisbeth Cartagena - Last Filed: 11/25/19 21:34> - Lab Data Result diagrams: 11/25/19 20:28 11/25/19 20:28 <Liana Goldberg - Last Filed: 11/25/19 23:26> - Medical Decision Making 83-year-old male presents to return today with one episode of vomiting. Family is concerned that it was relayed to starting a new medicine of a blood thinner. He is recently diagnosed with DVT yesterday. Denies any chest pain or shortness of breath. At this time patient's labs are reviewed. He does have evidence of some hematuria. Family really a remote history of a renal mass but has not had this evaluated quite some time. He is a poor story in, not completely truthful if he is having any pain. Does have history of dementia. Patient's CBC is unremarkable and hemoglobin shows no acute change from yesterday. He has had no further vomiting ED. I discussed further evaluation for painless hematuria including CT. Family agrees to undergo this. Patient will be undergoing CT. Patient's case discussed with Dr. Goldberg who will finish patient's care. (Lisbeth Cartagena) Patient care was signed out to me by Lisbeth. Briefly this is an 83-year-old gentleman with a history of a mass in the kidney which the family chosen not to follow up with due to desire to avoid any painful interventions even with the understanding this could be cancer. Patient was on Plavix for his atrial fibr illation and when evaluated in the emergency department yesterday was prescribed L Jessica due to an extensive femoral DVT. Patient is single episode of vomiting today and was also found to have a symptomatically hematuria during his workup today. Repeat computed tomography scan of the abdomen did confirm a large renal mass that has grown and is concerning for cancer. These results were discussed the patient and family at bedside, they're aware but continued to desire to avoid any invasive testing or aggressive therapies. They have spoken to both the patient's primary care physician Dr. Weiner as well as the cardiology office both which advised the patient can remain on both Plavix and Eliquis. I did offer them admission for evaluation by cardiology, oncology and medicine and a multidisciplinary manner however patient would prefer discharge home. They plan to discharge home at this time continue Plavix Eliquis over the weekend and follow up with primary care on Thursday for further evaluation. (Liana Goldberg) - Lab Data Lab Results 11/25/19 11/25/19 11/25/19 Range/Units 20:28 20:28 20:28 WBC 10.7 H (3.8-10.6) k/uL RBC 4.45 (4.30-5.90) m/uL Hgb 13.7 (13.0-17.5) gm/dL Hct 42.7 (39.0-53.0) % MCV 95.8 (80.0-100.0) fL MCH 30.9 (25.0-35.0) pg MCHC 32.2 (31.0-37.0) g/dL RDW 13.8 (11.5-15.5) % Plt Count 208 (150-450) k/uL Neutrophils % 77 % Lymphocytes % 10 % Monocytes % 6 % Eosinophils % 4 % Basophils % 1 % Neutrophils # 8.3 H (1.3-7.7) k/uL Lymphocytes # 1.1 (1.0-4.8) k/uL Monocytes # 0.7 (0-1.0) k/uL Eosinophils # 0.4 (0-0.7) k/uL Basophils # 0.1 (0-0.2) k/uL PT 10.6 (9.0-12.0) sec INR 1.0 (<1.2) APTT 24.6 (22.0-30.0) sec Sodium 136 L (137-145) mmol/L Potassium 4.7 (3.5-5.1) mmol/L Chloride 108 H (98-107) mmol/L Carbon Dioxide 19 L (22-30) mmol/L Anion Gap 9 mmol/L BUN 21 H (9-20) mg/dL Creatinine 0.74 (0.66-1.25) mg/dL Est GFR (CKD-EPI)AfAm >90 (>60 ml/min/1.73 sqM) Est GFR (CKD-EPI)NonAf 84 (>60 ml/min/1.73 sqM) Glucose 92 (74-99) mg/dL Calcium 8.6 (8.4-10.2) mg/dL Total Bilirubin 0.8 (0.2-1.3) mg/dL AST 33 (17-59) U/L ALT 12 (4-49) U/L Alkaline Phosphatase 82 (38-126) U/L Total Protein 6.4 (6.3-8.2) g/dL Albumin 3.5 (3.5-5.0) g/dL Amylase 54 (30-110) U/L Lipase 89 (23-300) U/L Urine Color Urine Appearance (Clear) Urine pH (5.0-8.0) Ur Specific [place] (1.001-1.035) Urine Protein (Negative) Urine Glucose (UA) (Negative) Urine Ketones (Negative) Urine Blood (Negative) Urine Nitrite (Negative) Urine Bilirubin (Negative) Urine Urobilinogen (<2.0) mg/dL Ur Leukocyte Esterase (Negative) Urine RBC (0-5) /hpf Urine WBC (0-5) /hpf Ur Squamous Epith Cells (0-4) /hpf Urine Mucus (None) /hpf 11/25/19 Range/Units 20:56 WBC (3.8-10.6) k/uL RBC (4.30-5.90) m/uL Hgb (13.0-17.5) gm/dL Hct (39.0-53.0) % MCV (80.0-100.0) fL MCH (25.0-35.0) pg MCHC (31.0-37.0) g/dL RDW (11.5-15.5) % Plt Count (150-450) k/uL Neutrophils % % Lymphocytes % % Monocytes % % Eosinophils % % Basophils % % Neutrophils # (1.3-7.7) k/uL Lymphocytes # (1.0-4.8) k/uL Monocytes # (0-1.0) k/uL Eosinophils # (0-0.7) k/uL Basophils # (0-0.2) k/uL PT (9.0-12.0) sec INR (<1.2) APTT (22.0-30.0) sec Sodium (137-145) mmol/L Potassium (3.5-5.1) mmol/L Chloride (98-107) mmol/L Carbon Dioxide (22-30) mmol/L Anion Gap mmol/L BUN (9-20) mg/dL Creatinine (0.66-1.25) mg/dL Est GFR (CKD-EPI)AfAm (>60 ml/min/1.73 sqM) Est GFR (CKD-EPI)NonAf (>60 ml/min/1.73 sqM) Glucose (74-99) mg/dL Calcium (8.4-10.2) mg/dL Total Bilirubin (0.2-1.3) mg/dL AST (17-59) U/L ALT (4-49) U/L Alkaline Phosphatase (38-126) U/L Total Protein (6.3-8.2) g/dL Albumin (3.5-5.0) g/dL Amylase (30-110) U/L Lipase (23-300) U/L Urine Color Yellow Urine Appearance Clear (Clear) Urine pH 5.5 (5.0-8.0) Ur Specific [place] 1.025 (1.001-1.035) Urine Protein Trace H (Negative) Urine Glucose (UA) Negative (Negative) Urine Ketones Negative (Negative) Urine Blood Moderate H (Negative) Urine Nitrite Negative (Negative) Urine Bilirubin Negative (Negative) Urine Urobilinogen <2.0 (<2.0) mg/dL Ur Leukocyte Esterase Negative (Negative) Urine RBC 57 H (0-5) /hpf Urine WBC 2 (0-5) /hpf Ur Squamous Epith Cells <1 (0-4) /hpf Urine Mucus Occasional H (None) /hpf - Radiology Data KB shows normal bowel gas pattern. (Lisbeth Cartagena) Disposition <Lisbeth Cartagena - Last Filed: 11/25/19 21:34> Is patient prescribed a controlled substance at d/c from ED?: No <Liana Goldberg - Last Filed: 11/25/19 23:26> Clinical Impression: Right leg DVT, Renal mass, Vomiting Disposition: HOME SELF-CARE Condition: Stable Referrals: Eda Weiner MD [Primary Care Provider] - 1-2 days Reagan Herman MD [STAFF PHYSICIAN] - 1-2 days [facility] [Provider Group] - 1-2 days
[2019-11-25 20:45] LABS: Basophils # (A) 0.1 k/uL (0-0.2); Basophils % (A) 1 %; Eosinophils # (A) 0.4 k/uL (0-0.7); Eosinophils % (A) 4 %; HCT 42.7 % (39.0-53.0); HGB 13.7 gm/dL (13.0-17.5); Lymphocytes # (A) 1.1 k/uL (1.0-4.8); Lymphocytes % (A) 10 %; MCH 30.9 pg (25.0-35.0); MCHC 32.2 g/dL (31.0-37.0); MCV 95.8 fL (80.0-100.0); Mean Platelet Volume 7.9; Monocytes # (A) 0.7 k/uL (0-1.0); Monocytes % (A) 6 %; Neutrophils # (A) 8.3 k/uL (1.3-7.7); Neutrophils % (A) 77 %; Platelet Count 208 k/uL (150-450); RBC 4.45 m/uL (4.30-5.90); RDW 13.8 % (11.5-15.5); WBC 10.7 k/uL (3.8-10.6)
[2019-11-25 20:53] LABS: Prothrombin Time 10.6 sec (9.0-12.0)
[2019-11-25 20:54] LABS: Partial Thromboplastin Time 24.6 sec (22.0-30.0)
[2019-11-25 20:57] LABS: ALT 12 U/L (4-49); AST 33 U/L (17-59); African American GFR (CKD) >90 (>60 ml/min/1.73 sqM); Albumin 3.5 g/dL (3.5-5.0); Alkaline Phosphatase 82 U/L (38-126); Amylase 54 U/L (30-110); Anion Gap 9 mmol/L; Blood Urea Nitrogen 21 mg/dL (9-20); Calcium 8.6 mg/dL (8.4-10.2); Carbon Dioxide 19 mmol/L (22-30); Chloride 108 mmol/L (98-107); Glucose 92 mg/dL (74-99); Non-African American GFR(CKD) 84 (>60 ml/min/1.73 sqM); Potassium 4.7 mmol/L (3.5-5.1); Sodium 136 mmol/L (137-145); Total Bilirubin 0.8 mg/dL (0.2-1.3); Total Protein 6.4 g/dL (6.3-8.2)
[2019-11-25 21:05] LABS: Appearance,Urine Clear (Clear); Bilirubin,Urine Negative (Negative); Blood,Urine Moderate (Negative); Color,Urine Yellow; Glucose,Urine (UA) Negative (Negative); Ketones,Urine Negative (Negative); Leukocyte Esterase,Urine Negative (Negative); Mucus,Urine Occasional /hpf; Nitrite,Urine Negative (Negative); PH, Urine 5.5 (5.0-8.0); Protein,Urine Trace (Negative); RBC,Urine 57 /hpf (0-5); Specific Gravity,Urine 1.025 (1.001-1.035); Squamous Epithelial Cell,Urine <1 /hpf (0-4); Urobilinogen,Urine <2.0 mg/dL (<2.0); WBC,Urine 2 /hpf (0-5)
--- NOTE | 2019-11-25 21:24 | XR ---
EXAMINATION TYPE: XR KUB DATE OF EXAM: 11/25/2019 COMPARISON: NONE HISTORY: Right-sided pain TECHNIQUE: 3 views supine FINDINGS: There is no sign of intestinal obstruction or pneumoperitoneum. Fecal pattern is normal. Th ere is left hip prosthesis. There are numerous surgical clips in the pelvis. There is no evidence of abdominal mass. There is mild compression deformity of lumbar vertebra. There are no pathologic calci fications over the kidneys. IMPRESSION: Nonacute abdomen.
--- NOTE | 2019-11-25 22:08 | CT ---
EXAMINATION TYPE: CT abdomen pelvis wo con DATE OF EXAM: 11/25/2019 COMPARISON: None HISTORY: weakness, nausea, vomiting, hematuria CT DLP: 966.5 mGycm Automated exposure control for dose reduction was used. Multiple axial sections were obtained from the diaphragm to the floor the pelvis without contrast. There is some patchy atelectasis at the lung bases. Heart size is fairly normal. Liver spleen gallbladder pancreas appear normal. Bile ducts are not dilated. There is no adrenal mass. Stomach is intact. There is rounded 5.7 cm mass on the posterior aspect lef t kidney. This has soft tissue density. There is no hydronephrosis. Ureters are not dilated. There is no retroperitoneal adenopathy. Bladder distends smoothly. There is left hip prosthesis. Exam limited due to metal artifact from the prosthesis. There is no free fluid in the pelvis. There is no inguina l hernia. There is apparent old pubic rami bilateral fractures. There is no free fluid in the pelvis. There is no mesenteric edema. There is no ascites or free air. There is no evidence of a bowel obstruction. Lumbar vertebra have normal alignment. There is spurring of the endplates. There is no evidence of an acute fracture. There is slight depression of the superior endplate of L1 and T12 that appears old. IMPRESSION: Patchy infiltrate and atelectasis at the lung bases. Cardiomegaly. 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 Follow-up recommended. No renal o bstruction.
[2019-11-25 23:36] VITALS: PULSE 72
[2019-11-25 23:37] VITALS: BP 135/91; RESP 19; TEMP 98
== END 2019-11-25 23:37 | disposition home or self-care (01) ==
LOC: EC 18:50
DX: N28.89 Other specified disorders of kidney and ureter (principal); I82.411 Acute embolism and thrombosis of right femoral vein; I48.91 Unspecified atrial fibrillation; Z79.01 Long term (current) use of anticoagulants; Z79.02 Long term (current) use of antithrombotics/antiplatelets; Z79.899 Other long term (current) drug therapy; Z88.5 Allergy status to narcotic agent; Z91.048 Other nonmedicinal substance allergy status; Z88.8 Allergy status to other drugs, medicaments and biological substances; Z95.0 Presence of cardiac pacemaker; Z85.46 Personal history of malignant neoplasm of prostate; Z85.820 Personal history of malignant melanoma of skin; Z87.891 Personal history of nicotine dependence; Z96.641 Presence of right artificial hip joint
CPT/HCPCS: 36415; 74018; 74176; 80053; 81001; 82150; 83690; 85025; 85610; 85730; 96360; 99285